=== PATIENT | male | born 1950 | race Caucasian/White ===

== ENCOUNTER 2024-07-27 11:23 | Outpatient (CLI) | payer MEDICARE, SELFPAY ==
--- NOTE | 2024-07-27 | CONSULT_PTH ---
PATIENT: Didier Baca LOC: [facility]#:[id number] AGE/SX: 74/M ROOM: RE07/27/[address]: Earl Khalil MD : 1950 BED: DIS: 07/27/2024 SPEC #: [id number] RECD: 07/27/24 13:30 STATUS: OCTAVIO REMaggie #: [id number] CHRISTOPHER: 07/27/24 00:[address]: Earl Khalil DEPT: [facility] Consult RECD BY: Krysta Cortes MLT, ([facility]) Tissues: A - Peripheral Smear Procedures: Hematology Consult
--- NOTE | ~2024-07-27 | XR_ITS ---
Clinical Indication: Anemia, polyarthralgia PA and lateral views of the chest: Comparison: 06/05/2015 Findings: There is patchy airspace disease right lung base, compatible with pneumonia. Left lung roberth r. Cardiomediastinal silhouette is within normal limits. Bones and soft tissues are unremarkable. Impression: Right lower lobe pneumonia. Reviewed, dictated and finalized at location . Impression: Right lower lobe pneumonia.
[2024-07-27 12:12] LABS: Add Urine Microscopic? YES; Appearance Urine Clear (Clear); Bilirubin Urine Negative (Negative); Blood Urine Negative (Negative); Color Urine Yellow (Yellow); Glucose Urine UA Negative (Negative); Ketones Urine Trace (Negative); Leukocyte Esterase Ur Negative (Negative); Nitrate Urine Negative (Negative); Protein Urine 1+ (Negative); Specific Grav Ur 1.025 (1.010-1.020); pH Urine 5.5 (5.0-8.0)
[2024-07-27 12:23] LABS: Alanine Aminotransferase 15 U/L (6-50); Albumin Level 3.8 g/dL (3.5-5.1); Alkaline Phosphatase 67 U/L (38-126); Anion Gap 7 mmol/L (4-12); Aspartate Amino Transferase 20 U/L (17-59); Bilirubin,Total 0.5 mg/dL (0.2-1.3); Blood Urea Nitrogen 14 mg/dL (9-20); CRP 6.2 mg/dL (<1.0); Calcium 8.6 mg/dL (8.4-10.2); Carbon Dioxide 25 mmol/L (22-30); Chloride 103 mmol/L (98-107); Cholesterol 161 mg/dL (0-200); Estimated Glomerular Filt Rate > 60; Glucose 127 mg/dL (65-110); HDL Direct 31 mg/dL; Iron 102 ug/dL (49-181); LDL Cholesterol Calculated 110 mg/dL (<130); Osmolality Calculated 282 mOsm/kg (285-295); Potassium 4.5 mmol/L (3.4-5.0); Sodium 135 mmol/L (137-145); Total Protein 7.2 g/dL (6.3-8.2); Triglycerides 102 mg/dL (<150)
[2024-07-27 12:25] LABS: Bacteria Urine Trace /hpf; RBC Urine None seen /hpf (0-2); WBC Urine None seen /hpf (0-3)
[2024-07-27 12:26] LABS: Mucus Urine Moderate /lpf
[2024-07-27 12:30] LABS: Percent Iron Saturation 37 % (20-50)
[2024-07-27 12:38] LABS: Free T4 Free Thyroxine 1.18 ng/dL (0.78-2.19)
[2024-07-27 12:41] LABS: Free T3 3.02 pg/mL (2.18-3.98); Immature Reticulocyte Fraction 20.7 % (2.0-16.52); Mean Corpuscular HGB Conc 31.4 g/dL (32-36); Mean Corpuscular Hemoglobin 37.7 pg (27.0-31.0); Mean Corpuscular Volume 119.9 fL (78.0-102.0); Platelet Count Result 141 K/mm3 (150-420); Red Blood Count 1.46 M/mm3 (4.70-6.10); Red Cell Distribution Width 18.4 % (11.6-14.4); Reticulocyte Hemoglobin Conten 41.1 pg (28.0-35.0); Reticulocyte Percent 2.22 % (0.50-1.50); Reticulocytes Absolute 0.03 M/mm3 (0.02-0.10)
[2024-07-27 12:44] LABS: Hemoglobin 5.5 g/dL (12.4-15.3)
[2024-07-27 12:45] LABS: Hematocrit 17.5 % (37.0-46.0); White Blood Count 0.9 K/mm3 (4.8-10.8)
[2024-07-27 13:10] LABS: Ferritin > 1000.00 ng/mL (11.1-264)
[2024-07-29 12:12] LABS: Red Blood Cell Folate 1424 ng/mL RBC (>280)
[2024-07-30 06:54] LABS: Methylmalonic Acid 144 nmol/L (69-390)
== END 2024-07-27 11:24 | disposition home or self-care (01) ==
PROVIDERS: PCP Internal Medicine; Visit Provider Internal Medicine
DX: D64.9 Anemia, unspecified (principal); F32.A Depression, unspecified; M25.50 Pain in unspecified joint; Z12.5 Encounter for screening for malignant neoplasm of prostate; J18.9 Pneumonia, unspecified organism
CPT/HCPCS: 36415; 71046; 80053; 80061; 81001; 82728; 82747; 83540; 83550; 83921; 84153; 84439; 84443; 84481; 85027; 85046; 86140; G0103

== ENCOUNTER 2024-07-28 15:07 | Outpatient (CLI) | payer MEDICARE, SELFPAY ==
--- NOTE | ~2024-07-28 | CT_ITS ---
Clinical Indication: Pancytopenia, lymphoma CT Scan of the Chest, Abdomen, and Pelvis with Contrast: Technique: Contiguous sections were acquired throughout the chest, abdomen, and pelvis after intraven ous administration of 100 cc of Omnipaque 350. Dose reduction technique was used on this scan by uti lizing automated exposure control and iterative reconstruction technique. The dose-length product (DL P) was 641.70 mGy-cm. Findings: Mildly prominent lymph nodes measure up to 9 mm in short axis along the right paratracheal stripe and in the subcarinal region.. No aortic aneurysm or dissection. No large central pulmonary embolus. There is no evidence of pleural or pericardial effusion. There is extensive irregular right lower lobe consolidation with air bronchograms. Remainder of the l ungs are clear. The liver, spleen, pancreas, gallbladder, adrenals and kidneys are within normal limits. There are at herosclerotic calcifications of the aorta. No lymphadenopathy. No bowel obstruction or bowel wall thickening. There is no evidence to suggest acute appendicitis. Urinary bladder is unremarkable. No pelvic mass evident. No ascites. Impression: Extensive irregular right lower lobe consolidation with air bronchograms, suspicious for right lower lobe pneumonia. Correlate for any possibility of neoplastic disease or treated disease. Borderline prominent mediastinal lymph nodes, presumably reactive. Consider follow-up chest CT after interval therapy to reassess the above findings. No significant abnormality in the abdomen or pelvis. Reviewed, dictated and finalized at [facility]. Impression: Extensive irregular right lower lobe consolidation with air bronchograms, suspi cious for right lower lobe pneumonia. Correlate for any possibility of neoplast ic disease or treated disease. Borderline prominent mediastinal lymph nodes, presumably reactive. Consider follow-up chest CT after interval therapy to reassess the above findin gs. No significant abnormality in the abdomen or pelvis.
== END 2024-07-28 15:08 | disposition home or self-care (01) ==
PROVIDERS: PCP Internal Medicine; Visit Provider Internal Medicine
DX: C85.90 Non-Hodgkin lymphoma, unspecified, unspecified site (principal); D61.818 Other pancytopenia; R91.8 Other nonspecific abnormal finding of lung field; R59.0 Localized enlarged lymph nodes
CPT/HCPCS: 71260; 74177; Q9967

== ENCOUNTER 2024-08-13 10:46 | Outpatient (CLI) | payer MEDICARE, OTHER, SELFPAY ==
--- NOTE | ~2024-08-13 | XR_ITS ---
EXAM/PROCEDURE: XR chest 2V - 08/13/2024 11:08 CDT HISTORY: 74 years old Male with Pneumonia/ SOB/ Intermittent cough x2 weeks TECHNIQUE: Two view(s) of the chest. COMPARISON: 07/27/2024. FINDINGS: LUNGS/ PLEURA: Airspace opacity in the right lung base, compatible with patient's known pneumonia, th is appears grossly unchanged since 07/27/2024. Probable small right pleural effusion. No left pleural effusion or bilateral pneumothoraces. HEART/ MEDIASTINUM: Heart appears normal in size. BONES: No acute osseous abnormality. OTHER: Visualized upper abdomen is unremarkable. IMPRESSION: Airspace opacity in the right lung base, compatible with patient's known pneumonia, this appears edna sly unchanged since 07/27/2024. Reviewed, dictated and finalized at location [facility]. IMPRESSION: Airspace opacity in the right lung base, compatible with patient's known pneumo rama, this appears grossly unchanged since 07/27/2024.
[2024-08-13 11:35] LABS: Immature Platelet Fraction Pct 2.9 % (1.0-7.0); Mean Corpuscular HGB Conc 31.8 g/dL (32-36); Mean Corpuscular Hemoglobin 38.3 pg (27.0-31.0); Mean Corpuscular Volume 120.1 fL (78.0-102.0); Mean Platelet Volume 10.8 fl (8.7-11.0); Platelet Count Result 145 K/mm3 (150-420); Red Blood Count 1.49 M/mm3 (4.70-6.10); Red Cell Distribution Width 18.5 % (11.6-14.4)
[2024-08-13 11:47] LABS: Alanine Aminotransferase 14 U/L (6-50); Albumin Level 3.8 g/dL (3.5-5.1); Alkaline Phosphatase 77 U/L (38-126); Anion Gap 8 mmol/L (4-12); Aspartate Amino Transferase 17 U/L (17-59); Bilirubin,Total 0.4 mg/dL (0.2-1.3); Blood Urea Nitrogen 19 mg/dL (9-20); CRP > 9.0 mg/dL (<1.0); Calcium 8.5 mg/dL (8.4-10.2); Carbon Dioxide 24 mmol/L (22-30); Chloride 103 mmol/L (98-107); Estimated Glomerular Filt Rate > 60; Glucose 136 mg/dL (65-110); Osmolality Calculated 284 mOsm/kg (285-295); Potassium 4.1 mmol/L (3.4-5.0); Sodium 135 mmol/L (137-145); Total Protein 7.4 g/dL (6.3-8.2)
[2024-08-13 12:08] LABS: Hemoglobin 5.7 g/dL (12.4-15.3); White Blood Count 0.6 K/mm3 (4.8-10.8)
[2024-08-13 12:09] LABS: Hematocrit 17.9 % (37.0-46.0)
[2024-08-13 12:46] LABS: Lymphocytes Absolute Manual 0.49 K/mm3 (1.1-4.5); Lymphocytes Percent Manual 83 % (18-44); Monocytes Absolute Manual 0.04 K/mm3 (0.1-0.90); Monocytes Percent Manual 7 % (3-9); Neutrophils Percent Manual 10 % (46-73); Total Cells Counted 100
[2024-08-13 12:47] LABS: Platelet Estimate Adequate (Adequate); Schistocytes None Seen
[2024-08-16 22:33] LABS: Legionella pneumophila Ag Ur NOT DETECTED
== END 2024-08-13 10:47 | disposition home or self-care (01) ==
PROVIDERS: PCP Internal Medicine; Visit Provider Internal Medicine
DX: D61.818 Other pancytopenia (principal); J18.9 Pneumonia, unspecified organism
CPT/HCPCS: 36415; 71046; 80053; 85025; 85055; 86140; 86606; 86612; 86628; 86635; 86698; 87449